=== PATIENT | female | born 1970 | race Caucasian/White ===

== ENCOUNTER → 2017-02-06 | Outpatient (CLI) | payer OTHER | LOC: BMCIMAGING 10:41 | DX: Z12.31 Encounter for screening mammogram for malignant neoplasm of breast (principal); M24.852 Other specific joint derangements of left hip, not elsewhere classified; M25.552 Pain in left hip | CPT/HCPCS: G0202 ==

== ENCOUNTER 2019-01-23 17:50 | Emergency (ER) | payer OTHER ==
[2019-01-23] MEDS ORDERED: IBUPROFEN 600 MG TAB PO ONE (18:15)
[2019-01-23] MEDS ORDERED: OXYCODONE/APAP 5/325 TAB PO ONE (18:44)
--- NOTE | 2019-01-23 18:44 | EDPHY ---
H & P Stated Complaint: L ankle injury Time Seen by Provider: 01/23/19 18:39 HPI/ROS: HPI: This is a 48-year-old female who presents with Chief Complaint: Left ankle injury Location: Left lateral ankle Quality: Injury Duration: 1-2 hr prior to arrival Signs and Symptoms: No bleeding, no radiation, no numbness, no weakness, no tingling, no incontinence,+ decreased range of motion, + swelling, + pain, no fever Timing: Acute Severity: 07/05 Context: Patient was at home reading a book when she stepped down from her kitchen into her living room causing a left ankle injury. She reports that she "misstepped" when denilson it her left ankle. She reports that she felt a " popping sensation" and then immediate pain to the point that she vomited x1. She reports that she laid on the ground for a few minutes. She was able to ambulate and then drive herself to the emergency room. Denies LOC/head injury/ neck pain/dizziness/nausea/vomiting/amnesia/radiation/weakness. She reports increased pain with weight-bearing. No Prior history of ankle sprains. Modifying Factors: None Comment: ROS: A comprehensive 10 system review of systems is otherwise negative aside from elements mentioned in the history of present illness. MEDICAL/SURGICAL/SOCIAL HISTORY: Medical history: Hypothyroidism. Surgical history: Denies Social history: Never smoked. CONSTITUTIONAL: Overweight, mild distress, middle-aged white female, awake and alert, no obvious distress HEENT: Atraumatic and normocephalic. NECK: supple, no midline tenderness, flexion 45 degrees, extension 45 degrees, right and left lateral flexion 45 degrees. No meningismus. Cardiovascular: Normal S1/S2, regular rate, regular rhythm, without murmur rub or gallop. PULMONARY/CHEST: Symmetrical and nontender. no crepitus. Clear to auscultation bilaterally. Good air movement. No accessory muscle usage. ABDOMEN: Soft, nondistended, nontender, no ecchymosis. EXTREMITIES: 2/2 pulses, strength 5/5, left Ankle: Moderate lateral malleolus swelling; Plantar flexion to 25, dorsiflexion to 10. Foot inversion to 15 degree. Moderate tenderness/swelling Anterior talofibular ligament. Moderate free tenderness/swelling Calcaneofibular ligament, moderate tenderness/swelling posterior talofibular ligament, no tenderness/swelling posterior inferior tibiofibular ligament. Achilles tendon intact. DIP/PIP/MCP flexion/extension intact with good light touch sensation. no deformities, no clubbing, no cyanosis or edema. NEUROLOGICAL: no focal neuro deficits. GCS 15. Light touch sensation intact. SKIN: Warm and dry, no erythema. no rash. Good capillary refill. Source: Patient Exam Limitations: No limitations - Personal History Current Tetanus/Diphtheria Vaccine: Yes Current Tetanus Diphtheria and Acellular Pertussis (TDAP): Yes - Medical/Surgical History Hx Asthma: No Hx Chronic Respiratory Disease: No Hx Diabetes: No Hx Cardiac Disease: No Hx Renal Disease: No Hx Cirrhosis: No Hx Alcoholism: No Hx HIV/AIDS: No Hx Splenectomy or Spleen Trauma: No Other PMH: hypothyroid, - Social History Smoking Status: Never smoked Constitutional: Initial Vital Signs Temperature (C) 37 C 01/23/19 18:11 Heart Rate 83 01/23/19 18:11 Respiratory Rate 16 01/23/19 18:11 Blood Pressure 121/95 H 01/23/19 18:11 O2 Sat (%) 99 01/23/19 18:11 O2 Delivery Mode Room Air Allergies/Adverse Reactions: Penicillins Allergy (Verified 01/23/19 18:10) Home Medications: Medication Instructions Recorded Synthroid 01/23/19 oxyCODONE/APAP 5/325 [Percocet 1 - 2 tab PO Q4H PRN #10 tab 01/23/19 5/325 (*)] Medical Decision Making Procedures: Procedure: Splint placement. A left Gilbert boot was applied. After application of the splint I returned and re-examined the patient. The splint was adequately immobilizing the joint and distal to the splint the patient's circulation and sensation was intact. ED Course/Re-evaluation: Vital signs reviewed and stable upon arrival. Ice pack applied and ibuprofen/Percocet x1 given Left ankle x-ray ordered my read shows no acute fracture but does show calcification on the posterior aspect or possible old avulsion fracture Placed in walking boot, crutches, orthopedic follow-up No signs of neurovascular compromise/tenting of skin/compartment syndrome/ extremities and joints examined above and below area of concern and are neurovascularly intact. This patient was seen under the supervision of my secondary supervising physician. I evaluated care for this patient independently. Discussed this patient with Dr. Ayala. Differential Diagnosis: Ankle injury differential diagnosis includes but is not limited to tibia fracture, fibula fracture, metatarsal fracture, LisFranc fracture, achilles tendon rupture, sprain. - Data Points Medications Given: Discontinued Medications Ibuprofen (Motrin) 600 mg PO EDNOW ONE Stop: 01/23/19 18:16 Last Admin: 01/23/19 18:16 Dose: 600 mg Oxycodone/Acetaminophen (Percocet 5/325) 1 tab PO EDNOW ONE Stop: 01/23/19 18:45 Last Admin: 01/23/19 18:46 Dose: 1 tab Departure - Departure Disposition: Home, Routine, Self-Care Clinical Impression: Grade 2 ankle sprain Qualifiers: Encounter type: initial encounter Laterality: left Qualified Code(s): S93.402A - Sprain of unspecified ligament of left ankle, initial encounter Condition: Good Instructions: Ankle Sprain (DC), Crutch Instructions (ED), Ankle Stirrup Splint (ED) Additional Instructions: Wear the walking boot while out of bed until pain free or seen by Orthopedics. Use crutches to aid ambulation. Start with toe-touch weight-bearing status. Take Tylenol 650 mg every 4 hours and/or Ibuprofen 600 mg every 8 hours with food as needed for pain. Use Percocet every 6 hours as needed for severe/break through pain. Do not use Tylenol and Percocet concomitantly. Apply ice for 30 minutes at a time; 2-3 times per day for the next 1-2 days. Follow up with Orthopedics in 7-10 days symptoms persist at which time they will evaluate and recommend with you if conservative management versus MRI Ankle is indicated. The x-rays obtained in the emergency department today demonstrate no evidence of an obvious fracture. Sometimes fractures are not obvious on the initial set of x-rays performed in the ED. For this reason, you should have repeat x-rays performed in 7-10 days if you are having any pain exclude the possibility of an occult fracture. Referrals: Maria Isabel Jeffers MD [Primary Care Provider] - As per Instructions Yeison Jenkins MD [Medical Doctor] - As per Instructions Prescriptions: oxyCODONE/APAP 5/325 [Percocet 5/325 (*)] 1 - 2 tab PO Q4H PRN #10 tab PRN Reason: Pain, Severe
[2019-01-23 20:22] VITALS: BP 124/89
== END 2019-01-23 20:21 | disposition home or self-care (01) ==
DX: S93.402A Sprain of unspecified ligament of left ankle, initial encounter (principal); W10.8XXA Fall (on) (from) other stairs and steps, initial encounter; Y92.000 Kitchen of unspecified non-institutional (private) residence as the place of occurrence of the external cause
CPT/HCPCS: L4386